=== PATIENT | female | born 1995 | race Caucasian/White ===

== ENCOUNTER 2019-02-20 01:18 | Emergency (ER) | payer OTHER, SELFPAY ==
[2019-02-20 01:20] VITALS: BP 136/70; PULSE 93; RESP 16; TEMP 37.2; O2SAT 98; BMI 22.8
--- NOTE | 2019-02-20 01:27 | ED.URI ---
HPI - URI/Sore Throat General Chief Complaint: Upper Respiratory Symptoms Stated Complaint: throat/neck/ear pain face hurts Time Seen by Provider: 02/20/19 01:26 Source: patient Mode of arrival: ambulatory Limitations: no limitations History of Present Illness HPI Narrative: Patient is a 23-year-old female who presents with severe right ear pain. She was on an airplane today it has progressively gotten worse. She also has a mild sore throat under she has had a fever. She denies any drainage or blood from her ear. She has no cough. MD Complaint: sore throat and other (Right ear pain) Onset (ago): hour(s) Duration: progressively worsening Severity: severe Relieving factors: nothing Exacerbating factors: nothing Related Data Previous Rx's Medication Instructions Recorded amoxicillin 500 mg PO TID 7 Days #21 cap 02/20/19 Allergies Allergy/AdvReac Type Severity Reaction Status Date / Time No Known Drug Allergies Allergy Verified 02/20/19 01:27 Review of Systems Review of Systems GENERAL: Denies chills, fatigue, malaise, fever, sweats, travel HEENT: See HPI RESPIRATORY: Denies dyspnea, cough, wheezing, hemoptysis, sputum. CARDIOVASCULAR: Denies chest pain, palpitations, orthopnea, edema GASTROINTESTINAL: Denies nausea, vomiting, abdominal pain, diarrhea, constipation, melena. : Denies dysuria, frequency, incontinence, hematuria, urinary retention, flank pain. MUSCULOSKELETAL: Denies weakness, joint pain, or bony pain SKIN: No rash, no erythema, no pruritus NEUROLOGIC: Denies weakness, dizziness, headache, numbness, change in speech, confusion PSYCHIATRIC: No concerning psychosocial issues. 12 point review of systems is negative except for those stated above and HPI [facility] Medical History Polycystic kidney disease (Acute) Social History (Updated 02/20/19 @ 01:29 by Amy Felix DO) alcohol intake: current substance use type: marijuana Social History Smoking Status: Current every day smoker alcohol intake: current substance use type: marijuana Exam Initial Vital Signs Initial Vital Signs: Vital Signs Temperature 99.0 F 02/20/19 01:20 Pulse Rate 93 H 02/20/19 01:20 Respiratory Rate 16 02/20/19 01:20 Blood Pressure 136/70 02/20/19 01:20 Pulse Oximetry 98 02/20/19 01:20 GENERAL: Tearful in pain HEENT: Head atraumatic,EOMI, pupils reactive, face symmetric, moist mucous membranes EARS: Right tympanic membrane is erythematous and bulging. No perforation. Left ear is within limits. PHARYNX: No erythema, no tonsillar exudate, no cervical lymphadenopathy CARDIOVASCULAR: Regular rate and rhythm without murmurs, rubs or gallops. RESPIRATORY: Breath sounds equal bilaterally, no wheezes rales or rhonchi. EXTREMITIES: Normal range of motion, no clubbing or edema. Neurovascularly intact NEUROLOGICAL: Alert and oriented x4.Normal gait and speech. SKIN: Warm, dry, no laceration, no petechiae, no rashes or lesions. Course Orders Ordered: Discontinued Medications Acetaminophen (Tylenol) 975 mg PO NOW ONE Stop: 02/20/19 01:27 Last Admin: 02/20/19 01:29 Dose: 975 mg Amoxicillin ( Trimox 250mg Prepack) 1 bottle MISC SEEINSTR ONE Stop: 02/20/19 01:27 Last Admin: 02/20/19 01:36 Dose: 1 bottle Proparacaine HCl (Parcaine 0.5% Ophth Carmen) 1 drops EYE-RIGHT NOW ONE Stop: 02/20/19 01:42 Last Admin: 02/20/19 01:47 Dose: 1 drop Vital Signs - 8 hr 02/20/19 01:20 Temperature 99.0 F Pulse Rate 93 H Respiratory Rate 16 Blood Pressure 136/70 Pulse Oximetry 98 MDM - URI/Sore Throat [facility] Narrative Medical decision making narrative: Patient still in quite a bit of pain despite Tylenol. Proparacaine drops were placed in the ear. She had some relief with it. She was not sent home proparacaine. Given prepack of amoxicillin. Discharge Plan Departure Patient Disposition: Home Clinical Impression: Otitis media Qualifiers: Otitis media type: serous Chronicity: acute Laterality: right Recurrence: non-recurrent Qualified Code(s): H65.01 - Acute serous otitis media, right ear Discharge Date/Time: 02/20/19 01:51 Interventions: ED Discharge Assessment Last Done: 02/20/19 01:50 Instructions: DI for Otitis Media (Middle Ear Infection)-Child Activity Restrictions/Additional Instructions: *You have been diagnosed with right ear infection *What to do: Discharged started better in the next couple of days. Do not put anything years no swimming. Showering is okay *Continue to take medications as directed amoxicillin 500 mg 3 times a day for 7 days Tylenol 650 mg every 4-6 hours if needed for pain *Follow up with your primary care provider in 2-3 days *Return to ER if you should have increasing pain, drainage or any new, worsening or concerning symptoms Prescriptions: New amoxicillin 500 mg capsule 500 mg PO TID 7 Days Qty: 21 RF: 0 Stand Alone Forms: Work Release Note
[2019-02-20] MEDS: ACETAMINOPHEN 325 MG TABLET 975 MG PO (01:29)
--- NOTE | 2019-02-20 01:31 | ED_ITS ---
HPI - URI/Sore Throat General Chief Complaint: Upper Respiratory Symptoms Stated Complaint: throat/neck/ear pain face hurts Time Seen by Provider: 02/20/19 01:26 Source: patient Mode of arrival: ambulatory Limitations: no limitations History of Present Illness HPI Narrative: Patient is a 23-year-old female who presents with severe right ear pain. She was on an airplane today it has progressively gotten worse. She also has a mild sore throat under she has had a fever. She denies any drainage or blood from her ear. She has no cough. MD Complaint: sore throat and other (Right ear pain) Onset (ago): hour(s) Duration: progressively worsening Severity: severe Relieving factors: nothing Exacerbating factors: nothing Related Data Previous Rx's Medication Instructions Recorded amoxicillin 500 mg PO TID 7 Days #21 cap 02/20/19 Allergies Allergy/AdvReac Type Severity Reaction Status Date / Time No Known Drug Allergies Allergy Verified 02/20/19 01:27 Review of Systems Review of Systems GENERAL: Denies chills, fatigue, malaise, fever, sweats, travel HEENT: See HPI RESPIRATORY: Denies dyspnea, cough, wheezing, hemoptysis, sputum. CARDIOVASCULAR: Denies chest pain, palpitations, orthopnea, edema GASTROINTESTINAL: Denies nausea, vomiting, abdominal pain, diarrhea, constipation, melena. : Denies dysuria, frequency, incontinence, hematuria, urinary retention, flank pain. MUSCULOSKELETAL: Denies weakness, joint pain, or bony pain SKIN: No rash, no erythema, no pruritus NEUROLOGIC: Denies weakness, dizziness, headache, numbness, change in speech, confusion PSYCHIATRIC: No concerning psychosocial issues. 12 point review of systems is negative except for those stated above and HPI [facility] Medical History Polycystic kidney disease (Acute) Social History (Updated 02/20/19 @ 01:29 by Amy Felix DO) alcohol intake: current substance use type: marijuana Social History Smoking Status: Current every day smoker alcohol intake: current substance use type: marijuana Exam Initial Vital Signs Initial Vital Signs: Vital Signs Temperature 99.0 F 02/20/19 01:20 Pulse Rate 93 H 02/20/19 01:20 Respiratory Rate 16 02/20/19 01:20 Blood Pressure 136/70 02/20/19 01:20 Pulse Oximetry 98 02/20/19 01:20 GENERAL: Tearful in pain HEENT: Head atraumatic,EOMI, pupils reactive, face symmetric, moist mucous membranes EARS: Right tympanic membrane is erythematous and bulging. No perforation. Left ear is within limits. PHARYNX: No erythema, no tonsillar exudate, no cervical lymphadenopathy CARDIOVASCULAR: Regular rate and rhythm without murmurs, rubs or gallops. RESPIRATORY: Breath sounds equal bilaterally, no wheezes rales or rhonchi. EXTREMITIES: Normal range of motion, no clubbing or edema. Neurovascularly i ntact NEUROLOGICAL: Alert and oriented x4.Normal gait and speech. SKIN: Warm, dry, no laceration, no petechiae, no rashes or lesions. Course Orders Ordered: Discontinued Medications Acetaminophen (Tylenol) 975 mg PO NOW ONE Stop: 02/20/19 01:27 Last Admin: 02/20/19 01:29 Dose: 975 mg Amoxicillin ( Trimox 250mg Prepack) 1 bottle MISC SEEINSTR ONE Stop: 02/20/19 01:27 Last Admin: 02/20/19 01:36 Dose: 1 bottle Proparacaine HCl (Parcaine 0.5% Ophth Carmen) 1 drops EYE-RIGHT NOW ONE Stop: 02/20/19 01:42 Last Admin: 02/20/19 01:47 Dose: 1 drop Vital Signs - 8 hr 02/20/19 01:20 Temperature 99.0 F Pulse Rate 93 H Respiratory Rate 16 Blood Pressure 136/70 Pulse Oximetry 98 MDM - URI/Sore Throat [facility] Narrative Medical decision making narrative: Patient still in quite a bit of pain despite Tylenol. Proparacaine drops were placed in the ear. She had some relief with it. She was not sent home proparacaine. Given prepack of amoxicillin. Discharge Plan Departure Patient Disposition: Home Clinical Impression: Otitis media Qualifiers: Otitis media type: serous Chronicity: acute Laterality: right Recurrence: non- recurrent Qualified Code(s): H65.01 - Acute serous otitis media, right ear Discharge Date/Time: 02/20/19 01:51 Interventions: ED Discharge Assessment Last Done: 02/20/19 01:50 Instructions: DI for Otitis Media (Middle Ear Infection)-Child Activity Restrictions/Additional Instructions: *You have been diagnosed with right ear infection *What to do: Discharged started better in the next couple of days. Do not put anything years no swimming. Showering is okay *Continue to take medications as directed amoxicillin 500 mg 3 times a day for 7 days Tylenol 650 mg every 4-6 hours if needed for pain *Follow up with your primary care provider in 2-3 days *Return to ER if you should have increasing pain, drainage or any new, worsening or concerning symptoms Prescriptions: New amoxicillin 500 mg capsule 500 mg PO TID 7 Days Qty: 21 RF: 0 Stand Alone Forms: Work Release Note
[2019-02-20] MEDS: AMOXICILLIN 250 MG PREPACK 1 BOTTLE MISC (01:36)
[2019-02-20] MEDS: PROPARACAINE 0.5% OPHTH SOL 1 DROPS EYE-RIGHT (01:47)
== END 2019-02-20 01:51 | disposition home or self-care (01) ==
PROVIDERS: Emergency Provider Emergency Medicine
DX: H65.01 Acute serous otitis media, right ear (principal)
CPT/HCPCS: 99282; 99283